=== PATIENT | male | born 1940 | race Caucasian/White ===

== ENCOUNTER 2017-06-28 19:04 | Observation (INO) | payer OTHER ==
[~2017-06-28] VITALS: Ht 185.4 cm; Wt 153.5 kg
--- NOTE | ~2017-06-28 | DS ---
Unit #: [id number] #: [id number] Patient: GERA CASON [id number] [address] [place], [place] [address] [id number] I MR#: [id number] NAME: GERA CASON ROOM: 463 Age: 76 Sex: M Admission Date: 06/28/2017 : 1940 Discharge Date: 07/01/2017 Attending Physician: Juan Miguel Flynn M.D. Primary Care Physician: Omar Redman M.D. DISCHARGE SUMMARY DISPOSITION The patient will be transferred to the retirement unit. PERTINENT HISTORY AND HOSPITAL COURSE The patient is a 76-year-old man with a history significant for hypertension, diet-controlled diabetes mellitus and chronic kidney disease who presented after a fall that occurred on 06/28/2017. As a result of the fall, the patient had pain between his shoulders and his lower back and his mid back, as well as significant difficulty with ambulating independently. The patient did have CAT scans performed for evaluation following the fall. They did not demonstrate any fracture. However, they did demonstrate noncalcified lung nodules measuring 5 mm or less bilaterally with recommendation for followup CAT scan in 6-12 months. 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 He underwent thyroid ultrasound that demonstrated a 2.3 cm nodule. The patient underwent endocrinology consultation. This will be followed up as an outpatient with endocrinology. The patient was also noted to have microcytic anemia with an initial B12 level of 162. He was started on B12 at 1,000 mcg once daily. Followup B12 level improved to 367. During his admission the patient received physical therapy and will require further physical therapy and occupational therapy for assistance with activities of daily living and ambulation. Therefore, the patient is being discharged to retirement unit for continued rehabilitation. DISCHARGE MEDICATIONS 1. Multivitamin 1 tablet daily. 2. Percocet 5/325 mg tab 1 p.o. q.4 p.r.n. 3. Vitamin D 1,000 units p.o. daily. 4. Vitamin B12 - 1,000 mcg p.o. daily. 5. Lovenox 40 mg subcu q.24 hours. 6. Coreg 6.25 mg p.o. b.i.d. 7. Colace 100 mg p.o. p.r.n. constipation. 8. Hydralazine 100 mg p.o. t.i.d. 9. Valsartan 320 mg p.o. daily. 10. Ferrous gluconate 324 mg p.o. daily. DISCHARGE INSTRUCTIONS The patient is to be discharged to retirement unit for continued rehabilitation and work with physical therapy and occupational therapy for assistance with activities of daily living and ambulation. Unit #: [id number] #: [id number] Patient: GERA CASON Dictated by... Rima Sharma/gio TD: 07/01/2017 13:16 JOB #: [id number] DISCHARGE SUMMARY Page 1 of 1 X X DISCHARGE SUMMARY
--- NOTE | ~2017-06-28 | US128 ---
[id number] [facility] [address] [place], [place] [address] [id number] I MR#: [id number] Acc #: [id number] NAME: GERA CASON : 1940 SEX: M STUDY DATE/TIME: 06/29/2017 14:35 UNIT: [facility] ROOM: 463 STUDY DESCRIPTION: US Thyroid Attending Physician: Juan Miguel Flynn M.D. Referring Physician: Marc Daly M.D. Ordering Physician: Tee Hammonds M.D. Primary Care Physician: Omar Redman M.D. MEDICAL IMAGING REPORT This report is preliminary unless electronic signature is present EXAM Thyroid ultrasound. INDICATIONS Thyroid enlargement seen on CT scan, done 06/28/2017. FINDINGS The right thyroid lobe is 4.7 x 1.5 x 3.7 cm and is slightly homogeneous. No focal nodules are identified. The left thyroid lobe is 5.3 x 3.2 x 4.6 cm. The largest nodule appears to be in the inferior thyroid tissue on the left and it measures 2.3 cm in diameter. Other nodules are ill-defined and difficult to measure. The CT scan confirms that there is a significant substernal component which is not visible on the ultrasound. This measures up to 3.6 cm in size on the CT scan. IMPRESSION 1. The thyroid tissue is slightly homogeneous. There is a dominant nodule on the left side measuring about 2.3 cm in diameter. On the diaphragm the technologist indicated it was in the upper thyroid tissue but on the images, I believe it is in the lower thyroid tissue. Also noted is that the CT scan showed significant extension of thyroid tissue in the substernal region which is not visible on the ultrasound. The tissue in this area on the CT scan is at least 3.6 cm in diameter and no discrete nodule is visible on the CT scan. Dictated by... Tulio Rincon M.D. THIS IS AN ELECTRONICALLY VERIFIED REPORT Tulio Rincon M.D. at 06/30/2017 7:08 AM LIZANDRO/dangelo TD: 06/29/2017 21:59 JOB #: [id number] MEDICAL IMAGING REPORT Page 1 of 1 COPY
--- NOTE | ~2017-06-28 | HP ---
Unit #: [id number] #: [id number] Patient: GERA CASON [id number] [address] [place], [place] [address] [id number] I MR#: [id number] NAME: GERA CASON ROOM: 463 Age: 76 Sex: M Admission Date: 06/28/2017 : 1940 Attending Physician: Li Coates M.D. Primary Care Physician: Omar Redman M.D. HISTORY AND PHYSICAL CHIEF COMPLAINT Fall with intractable back pain, unable to ambulate. HISTORY This 76-year-old male with essential hypertension, diet controlled AODM, chronic kidney disease, is admitted for fall and back pain. The patient fell earlier today after slipping in the kitchen. He fell onto his side and back. Plumbers were at his home, helped him up and he as able to sit at the side of the bed. However, during the day he developed increasing pain between the shoulder blades and mid back. He had difficulty ambulating. He presented to this emergency department tonight around 7:00 p.m. with a blood pressure of 202/97 after not taking his blood pressure medicines. He was given [place] and morphine, but is unable to even sit up in bed due to severe pain. The pain seems to be more on the right upper back. CT scans were performed, which were negative for fractures. PAST MEDICAL HISTORY 1. Essential hypertension. 2. Chronic kidney disease. 3. Diet controlled AODM. 4. Tonsillectomy. 5. Negative colonoscopy 01/2008. 6. Surgery for phimosis 2012. ALLERGIES No known drug allergies. HOME MEDICATIONS Ferrex 150 mg daily; vitamin D 1,000 units daily; Bystolic 10 mg daily; hydralazine 100 mg t.i.d.; valsartan 320 mg daily. FAMILY HISTORY Hypertension and diabetes mellitus. SOCIAL HISTORY The patient lives alone. He chewed tobacco in the past but really never smoked except for an occasional cigar. Was never a heavy drinker of alcohol. Does not drink currently. REVIEW OF SYSTEMS Notable for hypertension, chronic kidney disease, diet controlled AODM. Fall with back pain. Above mentioned surgeries. All other systems were Unit #: [id number] #: [id number] Patient: GERA CASON reviewed and otherwise negative. PHYSICAL EXAMINATION GENERAL: Pleasant, morbidly obese, 76-year-old male, currently in no acute distress. VITAL SIGNS: Temperature 98.3, pulse 84, respirations 17, blood pressure 202/97, O2 saturation 95% on room air. HEENT: Eyes - PERRLA, extraocular muscles are intact. Pharynx is benign. NECK: Supple without adenopathy or thyromegaly. CHEST: Clear. Patient is tender over the right mid back area. Not tender over the spine to percussion. CARDIAC: Normal S1 and S1 without S3, S4, or murmur. ABDOMEN: Bowel sounds are present. No hepatosplenomegaly, tenderness or masses. EXTREMITIES: Without clubbing, cyanosis or edema. Pedal pulses are present. No ulcers on the feet. NEUROLOGIC: Patient is awake, alert and oriented. His cranial nerves are intact. He has equal strength throughout but is not able to sit up secondary to severe back pain. It is barely able to roll on his side. DIAGNOSTIC STUDIES LABS: Hematocrit is 30.6, down from 33.9 in December, normal white count and platelet count. MCV is 96.4. SMA 12 - glucose 162, BUN 24, creatinine 1.6, which appears to be improved from before, albumin is 3.3. IMAGING STUDIES: CT scan of the chest - right greater than left pleural effusions with atelectasis versus infiltrate. Goiter, GERD. Questionable cirrhosis of the liver, which was not seen on CT scan. Tiny bilateral lung nodules noted, patient will need followup CT scan. CT scan of the abdomen and pelvis were read as likely renal cyst and diverticular disease. ASSESSMENT 1. Fall now with intractable mid back pain, which likely is related to contusion and spasm. The patient is unable to ambulate. 2. Accelerated hypertension. Patient missed his blood pressure medicines earlier. 3. Diet controlled AODM. 4. Chronic kidney disease. 5. Morbid obesity. 6. Goiter noted on CT scan. 7. Tiny lung nodules and likely renal cyst noted on CT scan. 8. Macrocytic anemia. PLANS 1. Pain control. 2. Blood pressure control. 3. Physical therapy to see. 4. DVT prophylaxis. 5. Check thyroid function test. 6. Patient will need repeat CT scans as an outpatient. Dictated by Li Coates M.D. Unit #: [id number] #: [id number] Patient: GERA CASON AML/ts TD: 06/29/2017 05:28 JOB #: [id number] HISTORY AND PHYSICAL Page 1 of 1 X Li Coates MD X HISTORY AND PHYSICAL
--- NOTE | ~2017-06-28 | CT4 ---
[facility] A Service of [facility] & [facility] RADIOLOGY TEXT RESULTS PATIENT: GERA CASON LOCATION: [facility] 463-01 : 40 UNIT #: [id number] AGE: [address]: BLANKA SOLIS V SEX: M ORDER DR: [id number] [facility] [address] [facility]. [place], [place] [address] [id number] I MR#: [id number] Acc #: [id number] NAME: GERA CASON : 1940 SEX: M STUDY DATE/TIME: 06/28/2017 20:06 UNIT: [facility] ROOM: 3 STUDY DESCRIPTION: CT Abd and Pelv Wo Cont Attending Physician: Blanka Solis M.D. Ordering Physician: Wendy Giraldo M.D. Primary Care Physician: Omar Redman M.D. MEDICAL IMAGING REPORT This report is preliminary unless electronic signature is present EXAM CT of the abdomen and pelvis without contrast dated 06/28/2017. COMPARISON None HISTORY Patient tripped over his feet and fell today. Patient has low back pain and right-sided flank pain today. TECHNIQUE CT of the abdomen and pelvis were obtained without IV or oral contrast in the axial plane followed by sagittal and coronal reformats. This CT exam was performed with one or more of the following radiation dose reduction techniques: automatic exposure control, adjustment of mA and/or kV according to patient size, and iterative reconstruction. FINDINGS LOWER CHEST: There is mild to moderate right and mild left pleural effusion with associated bibasilar atelectatic lung changes, worse on the right. Calcified right lower lobe lung nodule is seen. Minimal atelectatic changes are noted in the left lingula and in the right lower lobe close to the right middle lobe. Heart is of normal size. Degenerative changes are noted throughout the visualized thoracolumbar spine. It involves the discs and facet joints. Varying degrees of canal stenosis and neural foraminal narrowing are noted, worst in L2-3 to L4-5 levels. Varying degrees of canal stenosis, neural foraminal narrowing, and lateral recess stenosis are present. ABDOMEN: Lack of IV contrast limits evaluation of solid organs. Calcifications are noted in the spleen, likely related to old granulomatous disease. Liver, pancreas, adrenal glands are grossly STS. [facility] A Service of [facility] & [facility] RADIOLOGY TEXT RESULTS PATIENT: GERA CASON LOCATION: [facility] 463-01 : 40 UNIT #: [id number] AGE: [address]: BLANKA SOLIS V SEX: M ORDER DR: unremarkable. There are hypodense lesions in bilateral kidneys, 3 on the right and 2 on the left. They are incompletely characterized without contrast. Given the low Hounsfield units below 10, they are probably cysts. Gallbladder is within normal limits. There is no free fluid or free air intraperitoneally. No significant lymphadenopathy or aortic aneurysm is seen. There are probably colonic diverticula, particularly in the descending and rectosigmoid colon without acute diverticulitis. No obvious evidence of acute inflammation in the right lower quadrant to suggest acute appendicitis. There is a less than 1 cm calcification noted in the right anterolateral aspect of the mid to lower abdomen, benign. PELVIS: Prostatic calcifications are seen. Urinary bladder is within normal limits. Moderate stool ball is noted in the rectum. IMPRESSION 1. Mild left and moderate right-sided pleural effusion with associated atelectatic changes in the lower lungs. 2. There are 2 renal lesions noted in each kidney, probably cysts given the lower Hounsfield units, incompletely characterized without contrast. No hydronephrosis or hydroureters. 3. No urinary bladder calcifications or obvious wall thickening is noted. 4. Diverticulosis of particularly the descending and rectosigmoid colon without acute diverticulitis. 5. There is no free fluid, free air, or evidence of bowel obstruction. Gallbladder is unremarkable. A well-defined appendix is difficult to visualize but there is no signs of acute inflammation in the right lower quadrant of the abdomen. 6. Significant degenerative changes are noted in the thoracolumbar spine, particularly in the lower lumbar levels with canal stenosis, neural foraminal narrowing, and lateral recess stenosis from L2-3 to L4-5 followed by L5-S1. 7. There is some subcutaneous edema noted along the abdominal wall without any drainable fluid collection. Dictated by... Angeles Carmona M.D. THIS IS AN ELECTRONICALLY VERIFIED REPORT Angeles Carmona M.D. at 06/30/2017 3:20 PM CPR/tmw TD: 06/29/2017 10:52 JOB #: [id number] MEDICAL IMAGING REPORT Page 1 of 1 COPY
--- NOTE | ~2017-06-28 | CT57 ---
[facility] A Service of [facility] & [facility] RADIOLOGY TEXT RESULTS PATIENT: GERA CASON LOCATION: [facility] 463-01 : 40 UNIT #: [id number] AGE: [address]: BLANKA SOLIS V SEX: M ORDER DR: [id number] [facility] [address] [facility] [place], [place] [address] [id number] I MR#: [id number] Acc #: [id number] NAME: GERA CASON : 1940 SEX: M STUDY DATE/TIME: 06/28/2017 20:30 UNIT: [facility] ROOM: 3 STUDY DESCRIPTION: CT Chest Wo Cont Attending Physician: Blanka Solis M.D. Ordering Physician: Wendy Giraldo M.D. Primary Care Physician: Omar Redman M.D. MEDICAL IMAGING REPORT This report is preliminary unless electronic signature is present EXAM Chest CT no contrast 06/28/2017 INDICATION Tripped over his feet and fell, chest discomfort low back and right flank pain today. TECHNIQUE Noncontrast CT of the chest was performed. We have no comparison studies. This CT exam was performed with one or more of the following radiation dose reduction techniques: Automatic exposure control, adjustment of mA and/or kV according to patient size, and iterative reconstruction. FINDINGS CT chest. There is beam hardening artifact from nonstandard patient positioning. These were apparently the best images possible. Small to moderate right and trace to small left pleural effusions. There is compressive atelectasis in the left lung base and compressive atelectasis or potentially pneumonia in the right lower lobe. Follow up to clearing after appropriate therapy is recommended. No pneumothorax. There is also motion degradation. There are multiple noncalcified nodules. In the upper lobe there is a 3 mm noncalcified nodule. In the posterior right upper lobe there is a 5 mm noncalcified nodule. There is also a noncalcified nodule in the left lower lobe measuring 5 mm. These are indeterminate. If the patient is at low risk for malignancy then CT followup in 12 months would be recommended. If the patient is at high risk then CT followup should occur at 6-12 months. The thyroid is enlarged and there is an intrathoracic goiter on the left. Suggest initial further assessment with a thyroid ultrasound. There is mass effect upon the trachea displaced to the right. No axillary STS. [facility] A Service of [facility] RADIOLOGY TEXT RESULTS PATIENT: GERA CASON LOCATION: [facility] 463-01 : 40 UNIT #: [id number] AGE: [address]: BLANKA SOLIS V SEX: M ORDER DR: adenopathy. Air-fluid level within the esophagus suggests reflux. Reactive-appearing mediastinal nodes measure less than a centimeter short axis. No pericardial effusion or aortic aneurysm. The heart is borderline in size. There is old healed granulomatous disease. Included upper abdomen limited by motion degradation. There is cirrhosis. No clearly acute process in the visualized abdomen. Osseous structures demonstrate spinal degenerative change and ankylosis of the visualized thoracic spine which may reflect ankylosing spondylitis or diffuse idiopathic skeletal hyperostosis. We have no comparisons for this patient and correlation with history is recommended. No distinct rib fracture. IMPRESSION 1. Motion degraded study. 2. Pleural effusions, right greater than left, with compressive atelectasis in the left lung base and atelectasis or pneumonia in the right lower lobe. 3. Noncalcified lung nodules measuring 5 mm or less bilaterally are indeterminate and nonspecific. See followup recommendations in the body of the report. 4. There is no evidence of pneumothorax. 5. Thyromegaly and intrathoracic goiter with displacement of the trachea to the right. 6. Gastroesophageal reflux. 7. Upper abdomen demonstrates cirrhosis of the liver but no acute finding. 8. No distinct fracture. Ankylosis of the thoracic spine which may reflect diffuse idiopathic skeletal hyperostosis or ankylosing spondylitis. Dictated by... Ryan Del Rio M.D. THIS IS AN ELECTRONICALLY VERIFIED REPORT Ryan Del Rio M.D. at 06/29/2017 2:21 PM Anshu TD: 06/29/2017 10:33 JOB #: [id number] MEDICAL IMAGING REPORT Page 1 of 1 COPY
--- NOTE | ~2017-06-28 | CO ---
Unit #: [id number] #: [id number] Patient: GERA CASON [id number] [facility]. [place], [place] [address] [id number] I MR#: [id number] NAME: GERA CASON ROOM: 463 Age: 76 Sex: M Admission Date: 06/28/2017 : 1940 Attending Physician: Juan Miguel Flynn M.D. Primary Care Physician: Omar Redman M.D. CONSULTATION REPORT This is a 76-year-old male who has a history of hypertension, diabetes mellitus who has been admitted for a fall and back pain. During his stay in the hospital, he did have CT of his chest which showed an enlarged thyroid gland with deviation of the trach towards the right side. I have been asked to see the patient for further management. REVIEW OF SYSTEMS Patient declines any local pressure symptoms. No dysphagia, no shortness of air, no dysphonia, no hoarseness of voice. MEDICAL HISTORY 1. Hypertension. 2. Chronic kidney disease. ALLERGIES None. HOME MEDICATIONS List is reviewed. Patient is on: 1. Bystolic. 2. Hydralazine. 3. Valsartan. 4. Vitamin D. FAMILY HISTORY Hypertension and diabetes. SOCIAL HISTORY Lives alone. He chewed tobacco, past tobacco use history. PHYSICAL EXAMINATION GENERAL APPEARANCE: He is lying comfortably in no acute respiratory distress. VITAL SIGNS: Temperature 98, respirations 16, blood pressure 160/81. HEENT: EOMI. Pupils equally react to light. NECK: Supple. Questionable thyromegaly noted. No lymphadenopathy. CHEST: Good air entry. CVS: Regular rhythm. No murmurs. ABDOMEN: Soft, nontender. Bowel sounds positive. EXTREMITIES: No edema noted. DIAGNOSTIC STUDIES LABORATORY: Labs were reviewed. Creatinine is 1.6. TSH is 0.35. Free T4 is 1.08. Unit #: [id number] #: [id number] Patient: GERA CASON ASSESSMENT Nontoxic retrosternal goiter. PLAN Patient is totally asymptomatic with no local pressure symptoms, dysphonia, dysphagia or choking. Is clinically and biochemically euthyroid. Will check thyroid ultrasound for any thyroid nodules. Further management will depend upon thyroid ultrasound results. Thanks again for consultation. Dictated by... Rima Espinosa TD: 06/30/2017 12:00 JOB #: [id number] CONSULTATION REPORT Page 1 of 1 X Lashay Starr MD X CONSULTATION REPORT
--- NOTE | ~2017-06-28 | BMI ---
[facility] Nutrition Therapy DATE: 06/29/17 Patient: GERA CASON Physician: KEILY Address: [address] [facility] Room/Bed: [address] [place] [address], Zip: [place] [address] Admit Date: 06/28/17 Date of : 40 Height: 6 1 Weight: 338 153.5 HIGH BMI NOTE: DX: 76 y/o male s/p fall with intractable pain ANTHROPOMETRICS: Ht: 73", Wt: 153.5 kg, BMI: 44 (stage III obese) DIET: Consistent carb INTERVENTION: + healthy heart restriction, meds/fluids per MD RECOMMENDATIONS: Consider adding healthy heart restriction to current diet order to promote a gradual weight loss towards a healthy BMI range. Respectfully, Bethany Lan RD, LD [facility] cc: client file
[~2017-06-28 19:04] MED LIST: ACTOS PO; BYSTOLIC10 MG PO; CENTRUM SILVER PO; DIOVAN PO; GLUCOVANCE 5/501 TA1 PO; LISINOPRIL30 MG PO; LOPRESSOR PO; ZESTORETIC 20/21 TAB PO
[2017-06-28 21:01] LABS: BASOPHIL% 0.1 % (0-2.5); HEMATOCRIT 30.6 % (38.0-50.0); HEMOGLOBIN 9.9 gm/dL (13.0-16.0); LYMPHOCYTE# 0.4 X10e3 (1.0-3.5); MEAN CELL VOLUME 96.4 FL (83-96); MEAN CORPUSCULAR HEMOGLOBIN 31.2 PG (28-34); MEAN CORPUSCULAR HGB CONC 32.4 g/dL (30-36); MEAN PLATELET VOLUME 7.5 FL (6.5-11.5); MONOCYTE# 0.5 X10e3 (0-1.0); MONOCYTE% 5.7 % (3.0-12.0); NEUTROPHIL% 89.2 % (40-75); PLATELET COUNT 193 X10e3 (140-420); RED BLOOD COUNT 3.18 X10e (3.90-5.60); RED CELL DISTRIBUTION WIDTH 15.1 % (11.0-15.5); WHITE BLOOD COUNT 8.9 X10e3 (4.0-10.5)
[2017-06-28 21:03] LABS: DIFF IND NO
[2017-06-28 21:15] LABS: INR 1.1; PARTIAL THROMBOPLASTIN TIME 28.5 SECONDS (23.5-31.3); PROTHROMBIN TIME (PATIENT) 11.8 SECONDS (10.0-11.7)
[2017-06-28 22:07] LABS: ALBUMIN SERUM 3.3 g/dL (3.5-5.0); BILIRUBIN, DIRECT 0.3 mg/dL (0.0-0.2); BILIRUBIN,INDIRECT 0.8 mg/dL (0.0-0.9); BILIRUBIN,TOTAL 1.1 mg/dL (0.2-2.0); CALCIUM SERUM 8.5 mg/dL (8.4-10.2); CREATININE SERUM 1.6 mg/dL (0.6-1.4); GLOM FILT RATE Estimated 41.3 mL/min (>60); POTASSIUM 4.3 mmol/L (3.5-5.1); PROTEIN TOTAL SERUM 7.1 g/dL (6.0-8.3)
[2017-06-29] MEDS ORDERED: FERREX 150 FOR1 EACH PO (00:13)
[2017-06-29] MEDS ORDERED: HYDRALAZINE HC100 MG PO (00:15)
[2017-06-29] MEDS ORDERED: LOVENOX40 MG/0.4 INJ (00:15)
[2017-06-29] MEDS ORDERED: LORTAB 5-325 M1 EACH PO (00:17)
[2017-06-29] MEDS ORDERED: ZOFRAN 4 MG4 MG/2 ML INJ (00:18)
[2017-06-29 02:19] LABS: URINE SOURCE CLEAN CATCH
[2017-06-29 02:24] LABS: URINE APPEARANCE CLEAR; URINE BILIRUBIN NEG (NEG); URINE BLOOD NEG (NEG); URINE COLOR YELLOW; URINE GLUCOSE 100 MG/DL (NEG); URINE KETONE TRACE (NEG); URINE LEUKOCYTE ESTERASE NEG (NEG); URINE NITRATE NEG (NEG); URINE PROTEIN 2+ (NEG); URINE SPECIFIC GRAVITY 1.014 (1.003-1.035)
[2017-06-29 02:27] LABS: URBCS1 AUWI 0-2 /[HPF] (0-2); URINE BACTERIA AUWI NEG (NEGATIVE); URINE SQUAMOUS EPITHELIAL CELL NONE SEEN /[HPF]; UWBCS1 AUWI 0-2 (0-5)
[2017-06-29 02:34] LABS: CULTURE INDICATED? NO
[2017-06-29 06:07] LABS: BASOPHIL% 0.3 % (0-2.5); EOSINOPHIL% 0.1 % (0.0-7.0); HEMATOCRIT 28.8 % (38.0-50.0); HEMOGLOBIN 9.3 gm/dL (13.0-16.0); LYMPHOCYTE# 0.8 X10e3 (1.0-3.5); LYMPHOCYTE% 11.3 % (17.0-45.0); MEAN CELL VOLUME 96.4 FL (83-96); MEAN CORPUSCULAR HEMOGLOBIN 31.3 PG (28-34); MEAN CORPUSCULAR HGB CONC 32.4 g/dL (30-36); MEAN PLATELET VOLUME 7.2 FL (6.5-11.5); MONOCYTE# 0.7 X10e3 (0-1.0); MONOCYTE% 10.7 % (3.0-12.0); NEUTROPHIL# 5.4 X10e3 (1.5-7.1); NEUTROPHIL% 77.6 % (40-75); PLATELET COUNT 171 X10e3 (140-420); RED BLOOD COUNT 2.99 X10e (3.90-5.60); RED CELL DISTRIBUTION WIDTH 15.4 % (11.0-15.5)
[2017-06-29 06:12] LABS: DIFF IND NO
[2017-06-29 06:43] LABS: CALCIUM SERUM 8.2 mg/dL (8.4-10.2); CREATININE SERUM 1.6 mg/dL (0.6-1.4); GLOM FILT RATE Estimated 41.3 mL/min (>60); POTASSIUM 4.3 mmol/L (3.5-5.1)
[2017-06-29 07:45] LABS: THYROID STIMULATING HORMONE 0.75 uIU/ml (0.34-5.60)
[2017-06-29 07:50] LABS: FREE THYROXIN (T4) 1.08 ng/dL (0.58-1.64)
[2017-06-29 15:06] LABS: IRON SERUM 41 ug/dL (45-182); TOTAL IRON BINDING CAPACITY 228 ug/dL (252-460); TRANSFERRIN 163 mg/dL (180-329); TRANSFERRIN SATURATION 18 % (20-50)
[2017-06-30 03:34] LABS: BUN/CREATININE RATIO 17.05; CALCIUM SERUM 8.4 mg/dL (8.4-10.2); CREATININE SERUM 1.7 mg/dL (0.6-1.4); GLOM FILT RATE Estimated 38.3 mL/min (>60); POTASSIUM 4.3 mmol/L (3.5-5.1)
== END 2017-07-01 18:26 ==
LOC: CED 19:04 → CEDOF 23:50 → C4C 23:50 → CED 23:59 → CEDOF 23:59 → C4C 06-29 01:07
PROVIDERS: Internal Medicine; Student in an Organized Health Care Education/Training Program
DX: M54.5 Low back pain (principal); E11.22 Type 2 diabetes mellitus with diabetic chronic kidney disease; I12.9 Hypertensive chronic kidney disease with stage 1 through stage 4 chronic kidney disease, or unspecified chronic kidney disease; N18.9 Chronic kidney disease, unspecified; E66.01 Morbid (severe) obesity due to excess calories; E04.9 Nontoxic goiter, unspecified; R91.8 Other nonspecific abnormal finding of lung field; D53.9 Nutritional anemia, unspecified; F17.210 Nicotine dependence, cigarettes, uncomplicated; F17.220 Nicotine dependence, chewing tobacco, uncomplicated; W19.XXXA Unspecified fall, initial encounter; Z98.890 Other specified postprocedural states; Z79.899 Other long term (current) drug therapy
CPT/HCPCS: 36415; 71250; 74176; 76536; 80048; 80076; 81003; 82607; 82728; 83540; 83550; 84439; 84443; 85025; 85610; 85730; 96372; 96374; 96376; 97110; 97161; 97166; 97530; 97535; 99285; G0378; G8978-GP; G8979-GP; G8987-GO; G8988-GO; J1650; J2270

== ENCOUNTER → 2017-08-05 | Outpatient (CLI) | payer OTHER ==
[~2017-08-05] MED LIST changes: +FERREX 150 FOR1 EACH PO; +HYDRALAZINE HC100 MG PO; +LORTAB 5-325 M1 EACH PO; +LOVENOX40 MG/0.4 INJ; +ZOFRAN 4 MG4 MG/2 ML INJ
[2017-08-05 16:18] LABS: HEMATOCRIT 33.8 % (38.0-50.0); HEMOGLOBIN 10.8 gm/dL (13.0-16.0); MEAN CELL VOLUME 94.8 FL (83-96); MEAN CORPUSCULAR HEMOGLOBIN 30.3 PG (28-34); MEAN PLATELET VOLUME 7.6 FL (6.5-11.5); RED BLOOD COUNT 3.57 X10e (3.90-5.60); WHITE BLOOD COUNT 6.8 X10e3 (4.0-10.5)
[2017-08-05 16:52] LABS: BUN/CREATININE RATIO 17.27; CALCIUM SERUM 8.9 mg/dL (8.4-10.2); CREATININE SERUM 2.2 mg/dL (0.6-1.4); GLOM FILT RATE Estimated 28.1 mL/min (>60); PHOSPHOROUS 3.3 mg/dL (2.5-4.6); POTASSIUM 4.1 mmol/L (3.5-5.1)
[2017-08-11 07:10] LABS: CALCIUM (PTHINTACT) 8.9 mg/dL (8.6-10.3)
== END | disposition home or self-care (01) ==
LOC: CLAB 15:45
PROVIDERS: Internal Medicine Nephrology
DX: N18.3 Chronic kidney disease, stage 3 (moderate) (principal); D63.1 Anemia in chronic kidney disease; N25.81 Secondary hyperparathyroidism of renal origin; E55.9 Vitamin D deficiency, unspecified
CPT/HCPCS: 36415; 80048; 82306; 82310; 82728; 83540; 83550; 83970; 84100; 85027